=== PATIENT | female | born 2000 | race Caucasian/White ===

== ENCOUNTER 2020-06-03 20:49 | Outpatient (CLI) | payer OTHER ==
[~2020-06-03 20:49] MED LIST: ACYCLOVIR200 MG PO; COLACE 100MG C100 MG PO; PREDNISONE 20 M20 MG PO; PRENATAL COMPL1 EACH PO
== END 2020-06-03 23:57 | disposition home or self-care (01) ==
LOC: GENOP 20:49
DX: Z53.8 Procedure and treatment not carried out for other reasons (principal)
CPT/HCPCS: 59025; 81001; 96365

== ENCOUNTER 2020-06-06 16:25 | Inpatient (IN) | payer OTHER ==
[~2020-06-06] VITALS: Ht 160 cm; Wt 93.9 kg
[2020-06-06 17:15] LABS: HEMOGLOBIN 10.7 gm/dl (12.3-15.3); RED BLOOD COUNT 4.15 M/UL (4.00-5.10); WHITE BLOOD COUNT 7.7 K/UL (4.5-11.0)
[2020-06-07] MEDS ORDERED: IBUPROFEN600 MG PO (09:59)
[2020-06-07] MEDS ORDERED: DOCUSATE SODIU100 MG PO (09:59)
[2020-06-08 03:28] LABS: HEMOGLOBIN 10.1 gm/dl (12.3-15.3)
== END 2020-06-08 16:00 | disposition home or self-care (01) | DRG 807 ==
LOC: GENOP 16:25 → OB 16:41
PROVIDERS: Obstetrics & Gynecology; ADMIT Obstetrics & Gynecology
PROC: 10E0XZZ Delivery of Products of Conception, External Approach (ICD-10-PCS; principal; 2020-06-06)
PROC: 10907ZC Drainage of Amniotic Fluid, Therapeutic from Products of Conception, Via Natural or Artificial Opening (ICD-10-PCS; 2020-06-06)
PROC: 0U7C7ZZ Dilation of Cervix, Via Natural or Artificial Opening (ICD-10-PCS; 2020-06-06)
PROC: 3E033VJ Introduction of Other Hormone into Peripheral Vein, Percutaneous Approach (ICD-10-PCS; 2020-06-06)
PROC: 4A1HXCZ Monitoring of Products of Conception, Cardiac Rate, External Approach (ICD-10-PCS; 2020-06-06)
DX: O76 Abnormality in fetal heart rate and rhythm complicating labor and delivery (principal); Z37.0 Single live birth; Z3A.40 40 weeks gestation of pregnancy; Z20.822 Contact with and (suspected) exposure to COVID-19
CPT/HCPCS: 36415; 59025; 81001; 82800; 85014; 85018; 85025; 90715; 96365; J2590; U0003